=== PATIENT | male | born 1990 | race Hispanic/Latino ===

== ENCOUNTER 2017-01-23 09:51 | Emergency (ER) | payer SELFPAY ==
[~2017-01-23] VITALS: Ht 167.6 cm; Wt 77.1 kg
[2017-01-23] MEDS ORDERED: AMOX500C2 PO (10:26)
--- NOTE | 2017-01-23 10:26 | ED Cough/URI ---
General Chief Complaint: Cough/Cold/Flu Symptoms Stated Complaint: CONGESTION Nursing Triage Note: ARRIVED VIA AMB TO ROOM 07. COMLPLAINS OF NASAL CONGESTION, RED ITCHY AND WATERING EYES FOR X3 DAYS. STATES HE HAS BEEN TAKING OTC COLD MED. Source: patient Exam Limitations: language barrier History of Present Illness Time seen by provider: 10:17 Initial Comments Patient presents to ER by private conveyance with a chief complaint of 2 days progressively worsening facial pain, ear pain, dizziness, nasal congestion. No fevers, nausea, rash, vomiting, diarrhea. 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 He has been using Flonase as well. Allergies and Home Medications Allergies Coded Allergies: No Known Drug Allergies (Unverified , 03/10/15) Home Medications No Active Prescriptions or Reported Meds Constitutional: No chills, No diaphoresis EENTM: ear pain, No ear discharge, No hearing loss, No blurred vision, No eye pain Respiratory: No cough, No phlegm, No short of breath, No wheezing Cardiovascular: No palpitations, No vascular heart diseas Gastrointestinal: No abdominal pain, No constipation, No diarrhea, No nausea Genitourinary: No discharge, No dysuria Musculoskeletal: No back pain, No joint pain Skin: No pruritus, No rash Psychiatric/Neurological: Headache, Denies Numbness, Denies Paresthesia Past [id number] Hx Patient Social History Recent Foreign Travel: No Contact w/Someone Who Travel: No Recent Infectious Disease Expo: No Physical Abuse: No Sexual Abuse: No Surgeries History of Surgeries: No Respiratory History of Respiratory Disorde: No Cardiovascular History of Cardiac Disorders: No Neurological History of Neurological Disord: No Reproductive System Hx Reproductive Disorders: No Genitourinary History of Genitourinary Disor: No Gastrointestinal History of Gastrointestinal Di: No Musculoskeletal History of Musculoskeletal Dis: No Endocrine History of Endocrine Disorders: No HEENT History of HEENT Disorders: No Cancer History of Cancer: No Did You Recieve Any Treatments: No Psychosocial History of Psychiatric Problem: No Suicide Risk Score: 0 Integumentary History of Skin or Integumenta: No Blood Transfusions History of Blood Disorders: No Physical Exam Vital Signs Vital Sign - Last 12Hours 01/23/17 09:55 Temp 96.9 Pulse 78 Resp 18 B/P (MAP) 130/91 Pulse Ox 98 Capillary Refill : Less Than 3 Seconds General Appearance: WD/WN, mild distress Eyes: Bilateral Eye Normal Inspection (facial edema mild), Bilateral Eye PERRL , Bilateral Eye EOMI HEENT: PERRL/EOMI, other (canals and TMs are clear with bulging and an effusion present bilaterally nose with congestion and pain over maxillary sinus to light palpation as well as a mucopurulent discharge bilateral nostrils.) Neck: non-tender, normal inspection Respiratory: chest non-tender, lungs clear, normal breath sounds Cardiovascular: normal peripheral pulses, regular rate, rhythm, no edema Extremities: normal inspection, normal capillary refill Neurologic/Psychiatric: alert, oriented x 3 Skin: normal color, warm/dry Progress/Results/Core Measures Results/Orders Vital Signs/I&O Vital Sign - Last 12Hours 01/23/17 09:55 Temp 96.9 Pulse 78 Resp 18 B/P (MAP) 130/91 Pulse Ox 98 Blood Pressure Mean: 104 Departure Impression Impression: Primary Impression: Maxillary sinusitis, acute Qualified Codes: J01.00 - Acute maxillary sinusitis, unspecified Disposition: HOME, SELF-CARE Condition: Stable Departure-Patient Inst. Decision time for Depature: 10:23 Referrals: NO,LOCAL PHYSICIAN (PCP/Family) Primary Care Physician Patient Instructions: Sinusitis in Children Add. Discharge Instructions: Go home and get some sleep and drink plenty of fluids. Tylenol 1000 mg every 8 hours or ibuprofen 800 mg every 8 hours for your discomfort. Use the Flonase twice a day for the next couple weeks. Take the antibiotics 1 capsule 3 times a day with food. Wash your hands and use hand mobile game engineer. Most important thing you can do to treat sinusitis is drink lots and lots of fluids and blow your nose. All discharge instructions reviewed with patient and/or family. Voiced understanding. Scripts Amoxicillin (Amoxicillin) 500 Mg Capsule 500 MG PO TID, #21 CAP 0 Refills Prov: JENNA GARNICA 01/23/17 Work/School Note: Work Release Form Date Seen in the Emergency Department: Jan 23, 2017 Return to Work: Jan 26, 2017 Restrictions: No Restrictions JENNA GARNICA Jan 23, 2017 10:26
[2017-01-23 10:30] VITALS: BP 130/91
== END 2017-01-23 10:30 | disposition home or self-care (01) ==
LOC: EDUNIT# 09:51 → ER 09:54
DX: J01.00 Acute maxillary sinusitis, unspecified (principal)
CPT/HCPCS: 99282